=== PATIENT | male | born 1960 | race Caucasian/White ===

== ENCOUNTER → 2020-11-06 09:39 | Outpatient (BNVA) | payer BC, SELFPAY | PROVIDERS: PCP Internal Medicine; Visit Provider Family Medicine Adult Medicine | DX: Z76.89 Persons encountering health services in other specified circumstances (principal) ==

== ENCOUNTER → 2021-01-29 09:29 | Outpatient (BNVA) | payer BC, SELFPAY | PROVIDERS: PCP Internal Medicine; Visit Provider Family Medicine Adult Medicine | DX: E11.40 Type 2 diabetes mellitus with diabetic neuropathy, unspecified (principal); Z98.890 Other specified postprocedural states ==

== ENCOUNTER → 2021-03-26 12:05 | Outpatient (BNVA) | payer BC, SELFPAY | PROVIDERS: PCP Internal Medicine; Visit Provider Family Medicine Adult Medicine ==

== ENCOUNTER → 2021-05-21 12:59 | Outpatient (BNVA) | payer BC, SELFPAY | PROVIDERS: PCP Internal Medicine; Visit Provider Family Medicine Adult Medicine | DX: E11.40 Type 2 diabetes mellitus with diabetic neuropathy, unspecified (principal); Z98.890 Other specified postprocedural states ==

== ENCOUNTER → 2021-07-07 11:00 | Outpatient (BNVA) | payer BC, SELFPAY | PROVIDERS: PCP Internal Medicine; Visit Provider Nurse Practitioner Family ==

== ENCOUNTER → 2021-08-04 09:59 | Outpatient (BNVA) | payer BC, SELFPAY | PROVIDERS: PCP Internal Medicine; Visit Provider Family Medicine Adult Medicine ==

== ENCOUNTER → 2021-09-01 10:09 | Outpatient (BNVA) | payer BC, SELFPAY | PROVIDERS: Visit Provider Family Medicine Adult Medicine ==

== ENCOUNTER → 2021-09-29 11:27 | Outpatient (BNVA) | payer BC, SELFPAY | PROVIDERS: Visit Provider Family Medicine Adult Medicine ==

== ENCOUNTER → 2021-10-29 10:02 | Outpatient (BNVA) | payer BC, SELFPAY | PROVIDERS: PCP Internal Medicine; Visit Provider Family Medicine Adult Medicine ==

== ENCOUNTER → 2021-11-23 11:08 | Outpatient (BNVA) | payer BC, SELFPAY | PROVIDERS: PCP Internal Medicine; Visit Provider Internal Medicine ==

== ENCOUNTER → 2022-01-08 11:14 | Outpatient (BNVA) | payer BC, SELFPAY | PROVIDERS: PCP Internal Medicine; Visit Provider Internal Medicine ==

== ENCOUNTER → 2022-01-29 11:53 | Outpatient (BNVA) | payer BC, SELFPAY | PROVIDERS: PCP Internal Medicine; Visit Provider Internal Medicine ==

== ENCOUNTER → 2022-02-22 10:41 | Outpatient (BNVA) | payer BC, SELFPAY | PROVIDERS: PCP Internal Medicine; Visit Provider Internal Medicine | DX: Z13.89 Encounter for screening for other disorder (principal) ==

== ENCOUNTER 2022-03-31 12:07 | Day surgery (SDC) | payer BC, SELFPAY ==
[2022-03-25 13:17] VITALS: BMI 33.7
--- NOTE | 2022-03-30 11:55 | HO.ANESPROP2 ---
Documented by User: Patricia Tomlinson NP 03/30/22 12:09 HPI - Anesthesia Eval Consult details Narrative: 62yo M for Spinal Cord Stimulation Trial CAD s/p stent (2006) and CABG (2020) OK to proceed and hold ASA per cardiology correspondence Buprenorphine daily PMFSH Active Problems Active Problems: All Active Problems (Updated 03/25/22 @ 13:21 by Yael Benson RN) buttermaker continuous churn (current) use of opiate analgesic (Acute) Lumbar post-laminectomy syndrome (Acute) History of lumbosacral spine surgery (Acute) CAD (coronary artery disease) (Acute) Diabetic neuropathy, painful (Acute) Past Medical History Medical History CAD (coronary artery disease) Diabetes Diabetic neuropathy, painful Elevated cholesterol History of atrial fibrillation less than 8 weeks after coronary artery bypass graft IDDM (insulin dependent diabetes mellitus) Lumbar post-laminectomy syndrome Memory loss Myocardial infarction Sleep apnea Surgical History Surgical History History of back surgery History of lumbosacral spine surgery History of surgery on lower extremity Hx of CABG Hx of heart artery stent Hx of tonsillectomy Hx of vasectomy Social History Social History Patient Tobacco Use Status: Former Tobacco user Quit Date: 1 yr ago Use of substances other than those prescribed or required for medical reasons: No Are you DNR?: No Advance Directives: No Advance Directives Information Provided: Yes Meds Allergies Allergy/AdvReac Type Severity Reaction Status Date / Time No Known Allergies Allergy Verified 03/31/22 12:50 Home Medications Medication Instructions Recorded Confirmed Last Taken Type metformin 500 mg tablet 1,000 mg PO BID 11/06/20 03/25/22 03/31/22 07:15 History sub-q insulin device, 30 unit #30 ea 11/06/20 02/22/22 Unknown History aspirin 81 mg tablet,delayed 81 mg PO DAILY 03/26/21 03/25/22 03/24/22 History release metoprolol tartrate 25 mg tablet 25 mg PO BID 11/23/21 03/25/22 03/31/22 07:15 History atorvastatin 40 mg tablet 1 tab PO DAILY 03/25/22 03/25/22 Unknown History insulin lispro 100 unit/mL 90 unit SUBCUT DAILY 03/25/22 03/25/22 Unknown History subcutaneous solution (Humalog U-100 Insulin) nitroglycerin 0.4 mg sublingual 1 tab SUBLINGUAL ONCE PRN 03/25/22 03/25/22 Unknown History tablet ropinirole 0.25 mg tablet 2 tab PO BEDTIME 03/25/22 03/25/22 Unknown History buprenorphine HCl 150 mcg buccal 1 strip BUCCAL Q12H 03/31/22 03/31/22 Unknown History film ([place]) Exam Exam Date and Time: March 30, 2022 1155 Height,Weight and Vital Signs: Height 5 ft 8 in Weight 100.698 kg Narrative Narrative: EKG 07/2021 NSR Low voltage QRS Inc RBBB Left posterior fascicular block Possible inferior infarct (cited before) Cannot rule out anteroseptal infarct (cited before) Abnormal EKG When c/w previous, no significant change was found Assessment and Plan Assessment Anesthesia Assessment: Chart Reviewed Documented by User: Kristin Coello MD 03/31/22 13:51 [facility] Past Medical History Medical History CAD (coronary artery disease) Diabetes Diabetic neuropathy, painful Elevated cholesterol History of atrial fibrillation less than 8 weeks after coronary artery bypass graft IDDM (insulin dependent diabetes mellitus) Lumbar post-laminectomy syndrome Memory loss Myocardial infarction Sleep apnea Surgical History Surgical History History of back surgery History of lumbosacral spine surgery History of surgery on lower extremity Hx of CABG Hx of heart artery stent Hx of tonsillectomy Hx of vasectomy History of Problems with Anesthesia: No Social History Social History Patient Tobacco Use Status: Former Tobacco user Quit Date: 1 yr ago Use of substances other than those prescribed or required for medical reasons: No Are you DNR?: No Advance Directives: No Advance Directives Information Provided: Yes Meds Allergies Allergy/AdvReac Type Severity Reaction Status Date / Time No Known Allergies Allergy Verified 03/31/22 12:50 Home Medications Medication Instructions Recorded Confirmed Last Taken Type metformin 500 mg tablet 1,000 mg PO BID 11/06/20 03/25/22 03/31/22 07:15 History sub-q insulin device, 30 unit #30 ea 11/06/20 02/22/22 Unknown History aspirin 81 mg tablet,delayed 81 mg PO DAILY 03/26/21 03/25/22 03/24/22 History release metoprolol tartrate 25 mg tablet 25 mg PO BID 11/23/21 03/25/22 03/31/22 07:15 History atorvastatin 40 mg tablet 1 tab PO DAILY 03/25/22 03/25/22 Unknown History insulin lispro 100 unit/mL 90 unit SUBCUT DAILY 03/25/22 03/25/22 Unknown History subcutaneous solution (Humalog U-100 Insulin) nitroglycerin 0.4 mg sublingual 1 tab SUBLINGUAL ONCE PRN 03/25/22 03/25/22 Unknown History tablet ropinirole 0.25 mg tablet 2 tab PO BEDTIME 03/25/22 03/25/22 Unknown History buprenorphine HCl 150 mcg buccal 1 strip BUCCAL Q12H 03/31/22 03/31/22 Unknown History film ([place]) Exam Airway Mallampati Class: III TM Dist: >3cm Neck ROM: Full Loose/Missing/Broken Teeth: Yes, Upper and Lower Heart: RRR Lungs: CTA Assessment and Plan Assessment Anesthesia Assessment: Anesthesia Plan Discussed Final Anesthetic Review History of Problems with Anesthesia: No NPO: Yes ASA Class: III Final Preanesthetic Review: Meds/Allgs Chart Reviewed, Consent Obtained/Reviewed and Anes Risks/Benef Reviewed Patient Risk: Intermediate Procedure Risk: Low Anesthetic Plan Anesthetic Plan: MAC: Disposition: Standard PACU
--- NOTE | ~2022-03-31 | FL_ITS ---
EXAMINATION: XR FLUOROSCOPY WITH IMAGES CLINICAL INFORMATION: Spinal stimulator trial tips COMPARISON: None. TECHNIQUE: Fluoroscopy performed by Dr. Aguayo. Fluoroscopy time: 3.3 minutes DAP: 16.5 Gycm2 Images: 2 FINDINGS: There are 2 spinal stimulator electrodes seen ascending the posterior aspect of the thoracic spinal canal. The electrode tips are at level mid thoracic region. There is no kinking or defect of the hardware. There are overlying sternotomy wires on the frontal view. FL/FL guidance in OR IMPRESSION: Fluoroscopy for pain management procedure.
[2022-03-31 12:41] VITALS: BP 103/66; PULSE 79; RESP 16; TEMP 36.7; O2SAT 96
[2022-03-31] MEDS: Lactated Ringers 1,000 ML 50 ML IVCONT (12:43)
[2022-03-31 12:56] LABS: Glucose, Whole Blood 154 mg/dL (60-115)
--- NOTE | 2022-03-31 12:56 | MHC.SHP ---
Pre-Procedural Eval Section A Date of Service: 03/31/22 The patient is an INPATIENT: No Changes since office visit: Yes Patient answered all questions The History & Physical has been completed within 30 days and I have reviewed it.: No Section B Chief Complaint: PDN, lumbar postlaminectomy syndrome Relevant Family History (Specify if Yes): No Relevant Social History: None Present Medications: see Short Stay Collaborative assessment Medical History: Significant History History of Previous Operations: Relevant previous surgery/procedure and date(s) Allergies: Allergies Allergy/AdvReac Type Severity Reaction Status Date / Time No Known Allergies Allergy Verified 03/31/22 12:50 Review of Systems Sugical H&P ROS: Negative: Constitution, Cardiovascular, Respiratory and Neurological Plan Diagnosis/Plan: Unchanged I have reviewed the history and physical and performed a pertinent physical examination on my patient. No changes have occurred unless specified.
--- NOTE | 2022-03-31 12:57 | P.BOP_ITS ---
Brief Operative Note Date of Service: 03/31/22 Pre-op diagnosis: Painful diabetic neuropathy; lumbar post-laminectomy syndrome Post-op diagnosis: same Procedure: Lumbar spinal cord stimulation trial Implants: SCS trial leads Surgeon: Michael Aguayo MD Anesthesia: MAC Was an Induction Brazer used for this Procedure?: No Estimated blood loss (mL): 2 Pathology: none sent Condition: stable Disposition: PACU
--- NOTE | 2022-03-31 12:58 | W.PM.OPN ---
Operative Note Operative Note Date of Service: 03/31/22 Narrative: Percutaneous Spinal Cord Stimulator Trial, Lumbar After obtaining written consent, pre-procedure blood pressure and heart rate were recorded and are in the nursing record for review. A peripheral IV was started. Antibiotics, cefazolin 2 gram, were given preoperatively. The patient was placed in a prone position.? The patient was sedated by the anesthesiologist. The thoracolumbar area was widely prepped with ChloraPrep, allowed to dry and draped in sterile fashion. Fluoroscopy was used to identify the target T12/L1 interlaminar space and appropriate needle insertion sites. The skin and subcutaneous tissue was anesthetized with a mixture of 1% lidocaine and 0.25% bupivacaine. Two separate 14 gauge Tuohy epidural needles were then advanced from the skin in a paramedian approach to the epidural space opening at T12/L1 interspace, where loss of resistance was found using air in the ARACELIS view. No paresthesias were elicited with needle placement. No CSF or heme was present upon needle placement. A guide wire was then used to confirm placement into the epidural space at each level under fluoroscopy. The 1x8 stimulator lead wire was then threaded to the top of T8 in the right parasagittal position and mid-T9 in the left parasagittal position under live fluoroscopy. The leads advanced midline and posterior to the dorsal column, confirmed on AP and lateral views.? The Tuohy needles were then completely removed under live fluoroscopy. The stimulator wires were then secured with 2-0 ticron sutures securing the anchors and covered with gauze and tegaderm for skin dressing. The patient tolerated the procedure well and no complications were encountered. Following the procedure the patient was awakened and brought to the PACU where his vital signs were stable. The patient was discharged home in good condition after being given discharge instructions. Time Out: Immediately prior to the procedure, the following was verbally confirmed that there is a signed consent form and that the correct patient, planned procedure, site and side are consistent with documentation and that necessary equipment and/or blood products are available prior to the start of the case. Complications: none EBL: <2 cc
[2022-03-31 14:53] VITALS: BP 123/64; PULSE 69; RESP 12; TEMP 36.3; O2SAT 96
[2022-03-31 15:08] VITALS: BP 125/63; PULSE 67; RESP 10; O2SAT 95
[2022-03-31 15:23] VITALS: BP 101/58; PULSE 65; RESP 10; O2SAT 96
[2022-03-31 15:38] VITALS: BP 106/65; PULSE 64; RESP 12; O2SAT 95
[2022-03-31 15:53] VITALS: BP 106/63; PULSE 70; RESP 14; TEMP 36.1; O2SAT 95
== END 2022-03-31 16:20 | disposition home or self-care (01) ==
PROVIDERS: PCP Internal Medicine; Visit Provider Internal Medicine
PROC: (CPT 63650; principal; 2022-03-31 12:30)
DX: M96.1 Postlaminectomy syndrome, not elsewhere classified (principal); E11.40 Type 2 diabetes mellitus with diabetic neuropathy, unspecified; I25.10 Atherosclerotic heart disease of native coronary artery without angina pectoris; Z98.61 Coronary angioplasty status; I25.2 Old myocardial infarction; G47.33 Obstructive sleep apnea (adult) (pediatric); Z79.891 Long term (current) use of opiate analgesic; Z79.4 Long term (current) use of insulin; Z79.82 Long term (current) use of aspirin; Z79.899 Other long term (current) drug therapy; Z87.891 Personal history of nicotine dependence; Z98.890 Other specified postprocedural states
CPT/HCPCS: 63650 ×2; 82947; C1713; C1778; J0690; J2250; J2795; J3010; Q9967

== ENCOUNTER → 2022-04-05 12:03 | Outpatient (BNVA) | payer BC, SELFPAY | PROVIDERS: PCP Internal Medicine; Visit Provider Internal Medicine | DX: E11.40 Type 2 diabetes mellitus with diabetic neuropathy, unspecified (principal) ==

== ENCOUNTER 2023-07-08 12:41 | Outpatient (RCR) | payer BC, SELFPAY ==
--- NOTE | ~2023-07-08 | XR_ITS ---
EXAMINATION: XR FOOT, LEFT CLINICAL INFORMATION: Nonhealing wound left fifth metatarsal COMPARISON: None available. TECHNIQUE: AP, lateral, and oblique views of the left foot. FINDINGS: Mineralization is normal. There is no fracture or dislocation. The joint spaces are preserved. No bony erosive change or acute periosteal reaction is appreciated. There is soft tissue swelling in the forefoot. No gas is seen in the soft tissues. A bandage projects over the lateral forefoot. XR/XR foot LT min 3V IMPRESSION: Forefoot soft tissue swelling without evidence of acute osteomyelitis.
== END 2023-07-29 16:00 | disposition home or self-care (01) ==
LOC: HO.WCC 12:41
PROVIDERS: Visit Provider Physician Assistant
DX: E11.621 Type 2 diabetes mellitus with foot ulcer (principal); L97.522 Non-pressure chronic ulcer of other part of left foot with fat layer exposed; L84 Corns and callosities; E11.40 Type 2 diabetes mellitus with diabetic neuropathy, unspecified; Z87.891 Personal history of nicotine dependence; Z79.4 Long term (current) use of insulin; Z79.84 Long term (current) use of oral hypoglycemic drugs; Z89.421 Acquired absence of other right toe(s); Z79.2 Long term (current) use of antibiotics; Z95.1 Presence of aortocoronary bypass graft
CPT/HCPCS: 11042; 73630